=== PATIENT | female | born 1990 | race Caucasian/White ===

== ENCOUNTER 2016-12-31 02:44 | Inpatient (IN) | payer OTHER, BC ==
[~2016-12-31] VITALS: Ht 177.8 cm; Wt 79.1 kg
[2016-12-31] VITALS (9 sets, daily range): BP systolic 96–130; BP diastolic 46–68; PULSE 61–94; TEMP 97.5–98
[~2016-12-31 02:44] MED LIST: ANTIDEPRESSANT; BIRTH CONTROL PILL; MACROBID 1100 MG/CAP PO; MOTRIN 600600 MG/TAB PO; PERCOCET 325 MG1 TA2 PO; PRENATAL1 TA1 PO; ZOFRAN 4MG T4 MG/TAB PO; ZOLOFT 50MG50 MG
[2016-12-31 03:10] LABS: BASO # 0.1 (0.0-0.2); BASO % 0.4 % (0.0-2.0); EOS # 0.2 (0.0-0.7); EOS % 0.7 % (0-4.0); GRAN # 16.6 (1.4-6.5); GRAN % 74.2 % (42.2-75.2); HEMOGLOBIN 12.7 g/dl (12.5-16.0); LYMPH % 17.8 % (20.0-51.0); MEAN CELL VOLUME 87 fl (80.0-100.0); MEAN CORPUSCULAR HEMOGLOBIN 30 pg (27.0-31.0); MEAN CORPUSCULAR HGB CONC 34 g/dl (33.0-37.0); MONO # 1.3 (0.1-0.6); MONO % 5.6 % (1.7-9.3); PLATELET COUNT 243 K/mm3 (130-400); RED BLOOD COUNT 4.23 M/mm3 (4.10-5.30); REDCELL DISTRIBUTION WIDTH-CV 12.6 % (11.5-14.5)
[2016-12-31 04:21] LABS: WHITE BLOOD COUNT 22.3 K/mm3 (4.8-10.8)
[2016-12-31 04:22] LABS: HEMATOCRIT 36.9 % (37.0-47.0)
[2017-01-01 07:45] VITALS: BP 114/56; PULSE 60; TEMP 97.4
[2017-01-01] MEDS ORDERED: IBU800 M1 PO (08:55)
[2017-01-01] MEDS ORDERED: PERCOCET 325 MG1 TA2 PO (08:56)
[2017-01-01 16:30] VITALS: BP 114/57; PULSE 65; TEMP 97.8
[2017-01-01 20:00] VITALS: BP 113/57; PULSE 57; TEMP 97.8
[2017-01-02 08:30] VITALS: BP 110/62; PULSE 80; TEMP 98
[2017-01-02 08:52] LABS: MEAN CELL VOLUME 90 fl (80.0-100.0); MEAN CORPUSCULAR HGB CONC 33 g/dl (33.0-37.0); MEAN PLATELET VOLUME 10.6 fl (7.4-10.4); PLATELET COUNT 210 K/mm3 (130-400); RED BLOOD COUNT 3.56 M/mm3 (4.10-5.30); REDCELL DISTRIBUTION WIDTH-CV 12.8 % (11.5-14.5); WHITE BLOOD COUNT 10.5 K/mm3 (4.8-10.8)
[2017-01-02 09:01] LABS: HEMATOCRIT 32.1 % (37.0-47.0); HEMOGLOBIN 10.7 g/dl (12.5-16.0); MEAN CORPUSCULAR HEMOGLOBIN 30 pg (27.0-31.0)
== END 2017-01-02 10:10 | disposition home or self-care (01) | DRG 775 ==
LOC: LDRO 02:44 → LDR 02:45 → OB 02:45 → LDRO 01-01 14:01 → OB 01-02 10:10
PROVIDERS: Student in an Organized Health Care Education/Training Program
PROC: 10E0XZZ Delivery of Products of Conception, External Approach (ICD-10-PCS; principal; 2016-12-31)
DX: O62.3 Precipitate labor (principal); O99.824 Streptococcus B carrier state complicating childbirth; O99.344 Other mental disorders complicating childbirth; F32.9 Major depressive disorder, single episode, unspecified; Z3A.37 37 weeks gestation of pregnancy; Z37.0 Single live birth
CPT/HCPCS: J2540; J2590; J7120

== ENCOUNTER → 2017-01-07 | Outpatient (CLI) | payer OTHER, BC ==
[~2017-01-07] MED LIST changes: +IBU800 M1 PO
== END ==
LOC: LAC 12:31
DX: Z39.1 Encounter for care and examination of lactating mother (principal); Z71.89 Other specified counseling